=== PATIENT | female | born 1945 | race Hispanic/Latino ===

== ENCOUNTER 2016-10-04 09:04 | Outpatient (CLI) | payer MEDICARE ==
--- NOTE | 2016-10-04 09:37 | XRay Report ---
XRAY CHEST TWO VIEWS: 10/04/16 09:04:00 CLINICAL: Chronic cough. COMPARISON: None FINDINGS: Normal heart and pulmonary vasculature.Mild aortic tortuosity. The lungs are normally expanded and clear.Mild degenerative changes in the spine. IMPRESSION: Negative chest with no acute cardiopulmonary process.
== END 2016-10-04 09:05 | disposition home or self-care (01) ==
LOC: SPVIMAG 09:04
PROVIDERS: ATTEND Internal Medicine
DX: R05 Cough (principal)
CPT/HCPCS: 71020

== ENCOUNTER 2016-10-06 09:00 | Outpatient (CLI) | payer MEDICARE ==
--- NOTE | 2016-10-06 13:52 | Mammography Report ---
BILATERAL DIGITAL SCREENING MAMMOGRAM with CAD: 10/06/16 09:00:00 CLINICAL: Routine screening. COMPARISON:None. She doesn't remember where she previously had a mammogram. FINDINGS: The breasts are heterogeneously dense, which may obscure small masses. A right asymmetry with architectural distortion on the CC view requires additional imaging.No suspicious calcifications. The left breast is negative. IMPRESSION: Right asymmetry and architectural distortion requiring further workup. BI-RADS CATEGORY: 0 -- Additional Imaging Evaluation Required RECOMMENDATION: Recall for right mediolateral , spot compression CC views and right breast ultrasound if needed. ACR BI-RADS MAMMOGRAPHIC CODES: 0 = Needs additional imaging evaluation; 1 = Negative; 2 = Benign; 3 = Probably benign; 4 = Suspicious; 5 = Malignant; 6 = Known biopsy-proven malignancy COMMENT: 1. Dense breast tissue, i.e., adenosis, fibrocystic changes, etc., may obscure an underlying neoplasm. 2. Approximately 10% of cancers are not detected with mammography. 3. A negative mammography report should not delay biopsy if a clinically suspicious mass is present. COMMENT: Patient follow-up letters are generated via our [employer] application.
== END 2016-10-06 09:01 | disposition home or self-care (01) ==
LOC: SPVWC 09:00
PROVIDERS: ATTEND Internal Medicine
DX: Z12.31 Encounter for screening mammogram for malignant neoplasm of breast (principal)
CPT/HCPCS: 77067; G0202

== ENCOUNTER 2016-11-06 10:05 | Outpatient (CLI) | payer MEDICARE ==
--- NOTE | 2016-11-06 11:18 | Ultrasound Report ---
RIGHT DIGITAL DIAGNOSTIC MAMMOGRAM and RIGHT BREAST ULTRASOUND: 11/06/16 10:05:00 CLINICAL: Recalled for asymmetry. COMPARISON:10/06/16 screening FINDINGS: ML and spot compression ML and CC views were performed. A low-density irregular asymmetry persists on the spot CC but the other views are negative. Ultrasound of the right breast (including all four quadrants and the retroareolar area) was performed and demonstrated normal fibroglandular and fatty structures. No mass, cyst or shadowing. IMPRESSION: A probably benign parenchymal asymmetry identified only on the CC view with a negative ultrasound. BI-RADS CATEGORY: 3 - - Probably Benign RECOMMENDATION: Followup right mammogram in three months. ACR BI-RADS MAMMOGRAPHIC CODES: 0 = Needs additional imaging evaluation; 1 = Negative; 2 = Benign; 3 = Probably benign; 4 = Suspicious; 5 = Malignant; 6 = Known biopsy-proven malignancy COMMENT: 1. Dense breast tissue, i.e., adenosis, fibrocystic changes, etc., may obscure an underlying neoplasm. 2. Approximately 10% of cancers are not detected with mammography. 3. A negative mammography report should not delay biopsy if a clinically suspicious mass is present. COMMENT: Patient follow-up letters are generated via our [employer] application.
== END 2016-11-06 10:06 | disposition home or self-care (01) ==
LOC: SPVWC 10:05
PROVIDERS: ATTEND Internal Medicine
DX: R92.8 Other abnormal and inconclusive findings on diagnostic imaging of breast (principal)
CPT/HCPCS: 76641; G0206

== ENCOUNTER 2017-03-15 09:16 | Outpatient (CLI) | payer MEDICARE ==
--- NOTE | 2017-03-15 10:16 | Mammography Report ---
RIGHT DIGITAL DIAGNOSTIC MAMMOGRAM : 03/15/17 09:16:00 CLINICAL: Short-term followup of an asymmetry. COMPARISON:11/06/16 FINDINGS: Routine views demonstrate heterogeneously dense breast with no asymmetry identified. No mass, architectural distortion or suspicious calcifications. IMPRESSION: Negative mammogram with resolution of asymmetry. BI-RADS CATEGORY: 1 -- Negative RECOMMENDATION: Return to routine mammographic screening. ACR BI-RADS MAMMOGRAPHIC CODES: 0 = Needs additional imaging evaluation; 1 = Negative; 2 = Benign; 3 = Probably benign; 4 = Suspicious; 5 = Malignant; 6 = Known biopsy-proven malignancy COMMENT: 1. Dense breast tissue, i.e., adenosis, fibrocystic changes, etc., may obscure an underlying neoplasm. 2. Approximately 10% of cancers are not detected with mammography. 3. A negative mammography report should not delay biopsy if a clinically suspicious mass is present. COMMENT: Patient follow-up letters are generated via our [employer] application.
== END 2017-03-15 09:17 | disposition home or self-care (01) ==
LOC: SPVWC 09:16
PROVIDERS: ATTEND Internal Medicine
DX: N64.89 Other specified disorders of breast (principal)